=== PATIENT | male | born 1980 | race Caucasian/White ===

== ENCOUNTER 2017-06-15 12:18 | Emergency (ER) | payer MEDICAID, OTHER ==
[~2017-06-15] VITALS: Ht 172.7 cm; Wt 77.1 kg
[2017-06-15 13:03] LABS: Basophils # (auto) 0 uL; Basophils % (auto) 0.4 % (0.0-2.0); CONDITION Y; Eosinophils # (auto) 0.2 uL; Eosinophils % (auto) 3.3 % (0.0-7.0); Hematocrit 47.3 % (41.0-53.0); Hemoglobin 16.6 g/dL (13.5-17.5); Lymphocytes # (auto) 1.6 uL; Lymphocytes % (auto) 24.5 % (10.0-50.0); Mean Corpuscular Hemoglobin 31.7 pg (28.0-32.0); Mean Corpuscular Hgb Conc. 35.1 g/dL (32.0-36.0); Mean Corpuscular Volume 90.3 fL (80.0-100.0); Mean Platelet Volume 9.1 fL (7.4-10.4); Monocytes # (auto) 0.5 uL; Monocytes % (auto) 7.5 % (0.0-12.0); Neutrophils # (auto) 4.2 uL; Neutrophils % (auto) 64.3 % (37.0-80.0); Platelet Count (auto) 275 10^3/uL (140-450); White Blood Cell 6.5 10^3/uL (4.4-10.8)
[2017-06-15 13:32] LABS: Albumin 3.8 g/dL (3.4-5.0); Alkaline Phosphatase 69 U/L (45-117); Anion Gap 6 (5-15); Aspartate Aminotransferase 10 U/L (15-37); BUN/Creatinine Ratio 11.2; Bilirubin, Total 2.7 mg/dL (0.2-1.0); Blood Urea Nitrogen 12 mg/dL (7-18); Carbon Dioxide 22 mmol/L (21-32); Chloride 112 mmol/L (98-107); GFR African American 99 mL/min; GFR Non-African American 82 mL/min; Glucose 68 mg/dL (74-106); Magnesium 2.7 mg/dL (1.6-2.6); Potassium 3.6 mmol/L (3.5-5.1); Sodium 140 mmol/L (136-145); Total Protein 7.3 g/dL (6.4-8.2)
[2017-06-15 15:23] VITALS: BP 119/77
[2017-06-15] MEDS ORDERED: LORazepam 0.5 MG TAB PO ONE (15:30)
== END 2017-06-15 15:31 | disposition home or self-care (01) ==
LOC: EDBD 12:18 → EDSEX 12:18 → ER 12:22
DX: F41.9 Anxiety disorder, unspecified (principal); R51 Headache; R10.9 Unspecified abdominal pain; F17.210 Nicotine dependence, cigarettes, uncomplicated; R42 Dizziness and giddiness; Z88.0 Allergy status to penicillin
CPT/HCPCS: 36415; 71020; 80053; 83735; 84484; 85025; 93005